=== PATIENT | male | born 1995 | race Caucasian/White ===

== ENCOUNTER 2017-07-01 23:04 | Inpatient (IN) | payer OTHER ==
[~2017-07-01] VITALS: Ht 182.9 cm; Wt 94.4 kg
[2017-07-02] MEDS ORDERED: SODIUM CHLORIDE 0.9% 1,000 ML IV ONE (00:50)
[2017-07-02] MEDS ORDERED: CLINDAMYCIN PMX 600MG/50ML 50 ML IV ONE (01:00)
[2017-07-02] MEDS ORDERED: ONDANSETRON 2MG/ML, 2ML IVPush PRN ×2 (01:00→22:00)
[2017-07-02] MEDS ORDERED: NALOXONE 0.4 MG/ML, 1ML IVPush ONE (01:00)
[2017-07-02] MEDS ORDERED: NALOXONE 0.4 MG/ML, 1ML ONE (01:11)
[2017-07-02] MEDS ORDERED: ONDANSETRON 2MG/ML, 2ML ONE ×2 (01:12→21:22)
[2017-07-02] MEDS ORDERED: CLINDAMYCIN PMX 600MG/50ML 50 ML ONE (01:14)
[2017-07-02 01:39] VITALS: BP 127/84
[2017-07-02 02:33] VITALS: BP 127/84
[2017-07-02 08:00] VITALS: BP 104/62
[2017-07-02 11:30] LABS: HEMATOCRIT 47.8 % (39.2-51.8); HEMOGLOBIN 16.3 g/dL (13.7-18.0); WHITE BLOOD COUNT 7.4 x10^3/uL (3.4-10)
[2017-07-02] MEDS ORDERED: NICOTINE 7 MG/24 HR PATCH.TD24 TD SCH (11:30)
[2017-07-02 11:43] LABS: BLOOD UREA NITROGEN 5 mg/dL (7-18)
[2017-07-02] MEDS: CLINDAMYCIN PMX 900MG/50ML 50 ML IV SCH ×2 (11:59→20:01)
[2017-07-02] MEDS ORDERED: D5%-0.45% NACL 1,000 ML IV SCH (12:30)
[2017-07-02 15:00] VITALS: BP 109/67
[2017-07-02 20:00] VITALS: BP 120/71
[2017-07-02] MEDS ORDERED: PROPOFOL 10 MG/ML, 20ML ONE (21:22)
[2017-07-02] MEDS ORDERED: MIDAZOLAM 1 MG/ML, 2ML ONE (21:22)
[2017-07-02] MEDS ORDERED: FENTANYL PF 250 MCG/5ML ONE (21:23)
[2017-07-02] MEDS ORDERED: BUPIVACAINE/PF 0.5% ONE (21:30)
[2017-07-02] MEDS ORDERED: LIDOCAINE/PF 1%, 30ML ONE (21:31)
[2017-07-02] MEDS ORDERED: FENTANYL PF 100 MCG/2ML IV PRN (22:00)
[2017-07-02] MEDS ORDERED: ACETAMINOPHEN 325 MG TABLET PO PRN (22:00)
[2017-07-02] MEDS ORDERED: LORazepam 2 MG/ML, 1ML IVPush PRN (22:00)
[2017-07-02] MEDS ORDERED: HYDROcodone/APAP 7.5-325MG/15ML UDC PO PRN (22:00)
[2017-07-02] MEDS ORDERED: HYDROmorphone 1 MG/ML, 1ML IV PRN (22:00)
[2017-07-02] MEDS ORDERED: OXYcodone 5 MG/5 ML ORAL.SOL UDC PO PRN (22:00)
[2017-07-02] MEDS ORDERED: PROMETHAZINE 25 MG/ML, 1ML IV PRN (22:00)
[2017-07-02] MEDS ORDERED: MIDAZOLAM 1 MG/ML, 2ML IV PRN (22:00)
[2017-07-02] MEDS ORDERED: FENTANYL PF 100 MCG/2ML ONE (22:28)
[2017-07-02] MEDS ORDERED: HYDROmorphone 2 MG/ML, 1ML ONE (22:28)
[2017-07-02] MEDS ORDERED: BISACODYL 10 MG SUPP PR PRN (22:30)
[2017-07-02] MEDS ORDERED: SENNA/DOCUSATE TABLET PO PRN (22:30)
[2017-07-02] MEDS ORDERED: CEFAZOLIN PMX 2GM/50ML 50 ML IVPB SCH (22:30)
[2017-07-02] MEDS ORDERED: MAGNESIUM HYDROXIDE 8%, 30ML UDC PO PRN (22:30)
== END 2017-07-02 23:26 | disposition left against medical advice (07) | DRG 603 ==
LOC: ED 23:59 → EDIP 07-02 00:50 → 4NOR 07-02 01:35
PROVIDERS: ADMIT Orthopaedic Surgery; ATTEND Orthopaedic Surgery
PROC: 0HBFXZZ Excision of Right Hand Skin, External Approach (ICD-10-PCS; principal; 2017-07-02 21:00)
DX: L03.011 Cellulitis of right finger (principal); F11.10 Opioid abuse, uncomplicated; F15.10 Other stimulant abuse, uncomplicated; S61.214A Laceration without foreign body of right ring finger without damage to nail, initial encounter; Z88.1 Allergy status to other antibiotic agents; X58.XXXA Exposure to other specified factors, initial encounter; Y93.89 Activity, other specified; Y92.098 Other place in other non-institutional residence as the place of occurrence of the external cause; Y99.8 Other external cause status
CPT/HCPCS: 36415; 80048; 85025; 85610; 85651; 86140; 87070; 87075; 87077; 87176; 87186; 87205; 96374; 96375; J1170; J2250; J2310; J2405; J2704; J3010; J3490; J7030

== ENCOUNTER 2017-08-14 00:48 | Emergency (ER) | payer MEDICAID, OTHER ==
[~2017-08-14] VITALS: Ht 182.9 cm; Wt 84.9 kg
[2017-08-14 00:52] VITALS: BP 122/74
== END 2017-08-14 01:59 | disposition home or self-care (01) ==
LOC: ED 01:20
DX: K13.0 Diseases of lips (principal); L01.01 Non-bullous impetigo; Z86.14 Personal history of Methicillin resistant Staphylococcus aureus infection
CPT/HCPCS: 99283